=== PATIENT | female | born 1995 | race Caucasian/White ===

== ENCOUNTER 2016-06-15 17:48 | Inpatient (IN) | payer MEDICAID ==
[~2016-06-15] VITALS: Ht 152.4 cm; Wt 67.2 kg
--- NOTE | 2016-06-15 18:27 | HP ---
Date/Time of Note Date/Time of Note DATE: 06/15/16 TIME: 18:26 OB - History Hx of Present Free Text/Dictation @37+wks GA with 3 min Spontaneous decel : 1 Para: 0 Care: Good Care Ultrasounds: Normal mid trimester US Obstetrical Complications: None Medical Complications: None Past Family/Social History * Past Medical, Surgical, Family and Obstetric Histories reviewed from chart. OB Admission Exam Physical Exam Abdomen: WNL Extremities: Normal Cervical Dilatation: 1cm Effacement: 75% Station: -1 Heart Rate: 140's Accelerations: Accelerations Present Decelerations: Variable Decelerations Varibility: Moderate Contractions on Admission: >10 Minutes Apart OB Assessment/Plan Reason for admission: observation Plan: Expectant Management ELMER ANDRADE M.D. June 15, 2016 18:27
--- NOTE | 2016-06-15 18:35 | TRIAGE ---
OB Triage Datetime Report Generated by CPN: 06/15/2016 18:35 Datetime: 06/15/2016 18:33 Time of Arrival: 06/15/2016 17:30 EGA: 37.5 Arrived By: Ambulatory Arrived From: Home Chief Complaint: UC Movement: Present Contractions: Regular Time Contractions Began: 06/15/2016 13:00 Rupture of Membranes: Denies Vaginal Bleeding: Normal Show Vaginal Discharge: Denies Recent Sexual Intercouse: Denies Abdominal Trauma: Not Applicable Patient Complaints: Contractions Time Provider Notified: 06/15/2016 18:22 Provider Notified: Juanito Initial Plan: NST Datetime: 06/15/2016 18:15 Vaginal Exam Dilatation (cms): 1.0 Effacement (%): 50 Station: -3 Exam By: Breonna BRENNAN Membrane Status: Intact Datetime: 06/15/2016 17:50 Assessment Type: Triage Maternal Assessment Level of Consciousness: Fully Conscious DTR's/Clonus: DTRs 2+; No Clonus Headache: Denies Blurred Vision: No Respiratory Effort: Unlabored; Regular Rhythm; Equal Expansion Breath Sounds, Left: Clear and Equal Breath Sounds, Right: Clear and Equal Nausea/Vomiting: Denies RUQ Epigastric Pain: Denies Lower Extremities Edema: None Degree: None Upper Extremities Edema: None Degree: None Facial Edema: None Fall Risk Assessment History of Falling: (0) No Secondary Diagnosis: (0) No Ambulatory Aid: (0) Bedrest/Nurse Assist IV Therapy: (0) No Gait: (0) Normal/Bedrest/Immobile Mental Status: (0) Oriented to Own Ability Fall Score: 0 Fall Risk Score Definition: No Risk: No action required Datetime: 06/15/2016 17:45 Temperature Route: Oral Datetime: 06/15/2016 17:40 Stage of : Labor
[2016-06-15 18:36] VITALS: BP 116/78; PULSE 75; RESP 18; Ht 152.4 cm; Wt 67.2 kg
[2016-06-15] MEDS: LACTATED RINGER'S 1,000 ML IV SCH (20:14)
[2016-06-15 20:21] LABS: ADD SCAN DIFF NO
[2016-06-15 20:22] LABS: BASOPHILS % 0.2 % (0.0-2.0); EOSINOPHILS % 0.2 % (0.0-7.0); HEMATOCRIT 33.5 % (37.0-47.0); HEMOGLOBIN 11.1 g/dl (12.0-16.0); LYMPHOCYTES % 21.8 % (15.0-51.0); MEAN CORPUSCULAR HEMOGLOBIN 29.2 pg (29.0-33.0); MEAN CORPUSCULAR HGB CONC 33.1 g/dl (32.0-37.0); MEAN CORPUSCULAR VOLUME 88.2 fl (82.0-101.0); MONOCYTE # 1.1 10^3/ul (0.3-0.9); MONOCYTES % 12.1 % (0.0-11.0); NEUTROPHIL # 5.9 10^3/ul (1.6-7.5); PLATELET COUNT 236 10^3/UL (140-415); RED CELL DISTRIBUTION WIDTH 12.9 % (11.5-14.5); WHITE BLOOD COUNT 9.1 10^3/ul (4.8-10.8)
[2016-06-15] MEDS ORDERED: OXYTOCIN 30 UNITS/LR 500 ML IV SCH (20:30)
[2016-06-15] MEDS ORDERED: LIDOCAINE 1% (MPF) 30 ML INJ INJ PRN (20:30)
[2016-06-15] MEDS ORDERED: CARBOPROST 250 MCG INJ IM PRN (20:30)
[2016-06-15] MEDS ORDERED: OXYTOCIN 30 UNITS/LR 500 ML IV PRN (20:30)
[2016-06-15] MEDS ORDERED: BUTORPHANOL 2 MG INJ IV PRN (20:30)
[2016-06-15] MEDS ORDERED: MISOPROSTOL 200 MCG TAB PR PRN (20:30)
[2016-06-15] MEDS ORDERED: METHYLERGONOVINE 0.2 MG INJ IM PRN (20:30)
[2016-06-15 20:51] LABS: INR 0.97; PROTIME 12.9 Sec (12.2-14.2)
[2016-06-15 20:52] LABS: PARTIAL THROMBOPLASTIN TIME 28.1 Sec (25.0-35.0)
[2016-06-16] MEDS ORDERED: LACTATED RINGER'S 1,000 ML IV PRN
[2016-06-16] MEDS: LACTATED RINGER'S 1,000 ML IV SCH ×4 (01:42→21:35)
--- NOTE | 2016-06-16 12:36 | RADRPT ---
PROCEDURE: US biophysical profile. CLINICAL INDICATION: cardiac deceleration. TECHNIQUE: Multiple sonographic images of the uterus were obtained. The images were revi ewed on a PACS workstation. COMPARISON: No prior studies are available for comparison. FINDINGS: There is a single live intrauterine gestation. heart rate is 136 beats per minute. The position is cephalic. The placenta is posterior grade 1 with no abruption or previa. The MAURO is 14.9 cm. (Normal = 5-20 cm.) Breathing Movement: 2 Gross Body Movement: 2 Tone: 2 Qualitative Amniotic Fluid Volume: 2 TOTAL: 8 IMPRESSION: 1. The biophysical score is 8/8. RPTAT: QQ .Sandeep Duggan MD, MD Date Time Electronically viewed and signed by .Sandeep Duggan MD, on 06/16/2016 12:35 .R/
--- NOTE | 2016-06-16 12:59 | QN ---
Documentation Comment This is a 21 years old 1 para EDC June 30 admitted to the hospital after noticing 3 minutes spontaneous deceleration at NST clinic patient was sent to the hospital for extended observation she had no more deceleration while in the hospital biophysical profile was 8/8 while contemplating to discharge patient to the care of her clinic there was another 3 minutes variable deceleration for this reason decided to keep the patient in the hospital and she was transferred to antepartum unit for continuous monitoring CHICHI MACIEL MD June 16, 2016 12:59
[2016-06-17] MEDS: LACTATED RINGER'S 1,000 ML IV SCH ×2 (05:33→13:19)
--- NOTE | 2016-06-17 15:06 | DS ---
Date/Time of Note Date/Time of Note DATE: 06/17/16 TIME: 14:57 Discharge Summary Admission/Discharge Info Admit Date/Time June 15, 2016 at 18:30 Discharge Date/Time June 17 at 1500 Final Diagnosis at 37 weeks plus gestation 3 minutes variable deceleration patient kept under close observation no more deceleration during the last 12 hours perinatology telephone consultation recommended she may be discharged home to return to the hospital on June to repeat biophysical profile, she was given kick count form, with antepartum instructions. Patient Condition: Good Consults Perinatology consultation recommended to discharge patient, to return back to the hospital a.m. for biophysical profile Procedures Extended NST, biophysical profile Hx of Present Illness 37 weeks plus gestation occasional variable deceleration Hospital Course Satisfactory uneventful Home Meds No Active Prescriptions or Reported Meds Follow-up Plan Return to hospital on June 8 AM for biophysical profile CHICHI MACIEL MD June 17, 2016 15:06
[2016-06-18] MEDS ORDERED: PRENAT PO (10:22)
--- NOTE | 2016-06-19 22:45 | QN ---
Documentation Comment term variable decels admitted CHICHI MACIEL MD June 19, 2016 22:44
== END 2016-06-17 14:00 | disposition home or self-care (01) | DRG 782 ==
LOC: OBT 17:48 → L-D 17:49 → OBT 18:30 → L-D 18:30
PROVIDERS: ADMIT Obstetrics & Gynecology; ATTEND Obstetrics & Gynecology
DX: O76 Abnormality in fetal heart rate and rhythm complicating labor and delivery (principal); Z3A.37 37 weeks gestation of pregnancy
CPT/HCPCS: 76818; 85025; 85610; 85730; 86592; 86762; 86900; 86901; 87340; G0463; J7120

== ENCOUNTER 2016-06-18 10:10 | Inpatient (IN) | payer MEDICAID ==
[~2016-06-18] VITALS: Ht 152.4 cm; Wt 68.5 kg
[2016-06-18 10:21] VITALS: BP 101/68; PULSE 77
[2016-06-18] MEDS ORDERED: PRENAT PO (10:22)
--- NOTE | 2016-06-18 11:31 | RADRPT ---
PROCEDURE: OB ultrasound for biophysical profile CLINICAL INDICATION: Biophysical profile. . Decelerations TECHNIQUE: Multiple sonographic images of the pelvis were obtained. Transabdominal views are obta ined. COMPARISON: 06/16/2016 FINDINGS: Single intrauterine gestation. Presentation: Cephalic. Placenta: Posterior No evidence of placental abruption. No evidence of placenta previa. breathing movement = 2/2 tone = 2/2 motion = 2/2 MAURO = 2/2 MAURO = 9.3 cm heart rate: 148 beats per minute IMPRESSION: Single intrauterine gestation. Biophysical profile 09/18 RPTAT: AADD .William Pires MD, MD Date Time Electronically viewed and signed by .William Pires MD, on 06/18/2016 11:30 .B/
[2016-06-18] MEDS ORDERED: LIDOCAINE 1% (MPF) 30 ML INJ INJ PRN (13:30)
[2016-06-18] MEDS ORDERED: CARBOPROST 250 MCG INJ IM PRN (13:30)
[2016-06-18] MEDS ORDERED: LACTATED RINGER'S 1,000 ML IV PRN (13:30)
[2016-06-18] MEDS ORDERED: BUTORPHANOL 2 MG INJ IV PRN ×2 (13:30)
[2016-06-18] MEDS ORDERED: OXYTOCIN 30 UNITS/LR 500 ML IV PRN (13:30)
[2016-06-18] MEDS ORDERED: METHYLERGONOVINE 0.2 MG INJ IM PRN (13:30)
[2016-06-18] MEDS ORDERED: MISOPROSTOL 200 MCG TAB PR PRN (13:30)
[2016-06-18] MEDS ORDERED: OXYTOCIN 30 UNITS/LR 500 ML IV SCH ×3 (13:30)
[2016-06-18] MEDS: LACTATED RINGER'S 1,000 ML IV SCH ×2 (13:56→17:50)
[2016-06-18 14:00] LABS: ADD SCAN DIFF NO
[2016-06-18 14:04] LABS: BASOPHILS % 0.1 % (0.0-2.0); EOSINOPHILS % 0.4 % (0.0-7.0); HEMATOCRIT 32.1 % (37.0-47.0); HEMOGLOBIN 10.7 g/dl (12.0-16.0); LYMPHOCYTES # 1.7 10^3/ul (0.8-2.9); LYMPHOCYTES % 23.3 % (15.0-51.0); MEAN CORPUSCULAR HEMOGLOBIN 29.2 pg (29.0-33.0); MEAN CORPUSCULAR HGB CONC 33.3 g/dl (32.0-37.0); MEAN CORPUSCULAR VOLUME 87.7 fl (82.0-101.0); MEAN PLATELET VOLUME 10.9 fl (7.4-10.4); MONOCYTE # 0.8 10^3/ul (0.3-0.9); MONOCYTES % 11.5 % (0.0-11.0); NEUTROPHIL # 4.7 10^3/ul (1.6-7.5); NEUTROPHILS % 64.4 % (39.0-77.0); PLATELET COUNT 230 10^3/UL (140-415); RED BLOOD COUNT 3.66 10^6/ul (4.20-5.40); RED CELL DISTRIBUTION WIDTH 13.1 % (11.5-14.5); WHITE BLOOD COUNT 7.2 10^3/ul (4.8-10.8)
[2016-06-18 14:25] LABS: PARTIAL THROMBOPLASTIN TIME 29.9 Sec (25.0-35.0); PROTIME 13.2 Sec (12.2-14.2)
--- NOTE | 2016-06-18 18:37 | CONS ---
DATE OF ADMISSION: 06/18/2016 DATE OF CONSULTATION: 06/18/2016 HISTORY OF PRESENT ILLNESS: I received a call from Dr. Solomon to evaluate the strip of this patient . She is currently at 38 weeks and 3 days. She had a late deceleration otherwise is a normal strip , however, given the gestational age and late decelerations, delivery is recommended. Dictated By: MÓNICA COURTNEY/CHRIS Conf#: [id number] DID#: [id number]
[2016-06-19] MEDS: LACTATED RINGER'S 1,000 ML IV SCH ×2 (02:18→08:34)
[2016-06-19] MEDS ORDERED: CEFAZOLIN 2 GM/50 ML (PMX) 50 ML IVPB SCH (08:30)
[2016-06-19] MEDS ORDERED: LACTATED RINGER'S 1,000 ML IV ONE (09:03)
[2016-06-19] MEDS ORDERED: FAMOTIDINE 20 MG INJ IV ONE (09:30)
[2016-06-19] MEDS ORDERED: CITRIC ACID/NA CITRATE 30 ML CUP PO ONE (09:30)
[2016-06-19] MEDS ORDERED: METOCLOPRAMIDE 10 MG INJ IV ONE (09:30)
[2016-06-19] MEDS ORDERED: morphine SULFATE/PF (10 MG/10 ML) INJ ONE (09:45)
[2016-06-19] MEDS ORDERED: FENTAnyl 50 MCG/ML VIAL ONE (09:45)
[2016-06-19] MEDS ORDERED: OXYTOCIN 30 UNITS/LR 500 ML IV ONE ×2 (09:45→10:29)
[2016-06-19] MEDS ORDERED: PHENYLephrine (100 MCG/ML) 5ML SYG ONE (10:01)
--- NOTE | 2016-06-19 10:04 | HP ---
Date/Time of Note Date/Time of Note DATE: 06/19/16 TIME: 09:52 OB - History Hx of Present Free Text/Dictation 21 years old female 1 para 0 admitted to [facility] referred from perinatology clinic for variable deceleration some to 3 minutes, down to 60s patient kept under close observation in the labor and delivery room had several more of these decelerations with contractions close together at 1 to 2 minutes did not respond to terbutaline, perinatology consult obtained recommended delivery patient is being prepared for a primary due to nonreassuring heart tracing and not anticipating a timely delivery with induction of labor due to intolerance patient has been counseled regarding her condition and indications for section including complication of this procedure including bowel bladder injury infection wound hematoma wound infection she would like to proceed with the procedure Estimated Due Date: July 01, 2016 : 1 Para: 0 Care: Good Care Ultrasounds: Normal mid trimester US Obstetrical Complications: None Medical Complications: None Past Family/Social History * Past Medical, Surgical, Family and Obstetric Histories reviewed from chart. Rubella: immune RPR/VDRL: Negative GBS Status: Negative HBsAG: Negative OB Admission Exam Vital Signs Vital Signs Vital Signs Date Time Temp Pulse Resp B/P Pulse Ox O2 Delivery O2 Flow Rate FiO2 06/18/16 10:21 98.3 77 101/68 Physical Exam HEENT: WNL Heart: Rhythm Normal Lungs: Clear, Equal Abdomen: WNL Extremities: Normal Reflexes: Normal Cervical Dilatation: Fingertip Effacement: 25% Station: -2 Membranes: Intact Heart Rate: 130's Accelerations: Accelerations Present Decelerations: Variable Decelerations Varibility: Moderate Intensity: Moderate Last 72 hours Lab Results CBC & BMP 06/18/16 13:45 OB Assessment/Plan Reason for admission: active labor Plan: Other (Primary due to nonreassuring heart tracing category 3) CHICHI MACIEL MD June 19, 2016 10:03
[2016-06-19] MEDS ORDERED: ONDANSETRON 4 MG INJ ONE (10:06)
--- NOTE | 2016-06-19 11:39 | OPR ---
DATE OF OPERATION: 06/19/2016 PREOPERATIVE DIAGNOSIS: Intrauterine at 38 weeks and 2 days, nonreassuring heart tr acing, category 3, deceleration up to 3 minutes, recommended by perinatologist delivery by section. POSTOPERATIVE DIAGNOSIS: Intrauterine at 38 weeks and 2 days, nonreassuring heart t racing category 3 deceleration up to 3 minutes, recommended by perinatologist delivery by s ection. OPERATION PERFORMED: Primary transverse low cervical section. SURGEON: Chichi Solomon MD [employer]: Ronald Schaeffer MD ANESTHESIA: Spinal. ANESTHESIOLOGIST: Dr. Duncan. FINDINGS: Live baby girl with the 8 and 9. DETAILS OF THE PROCEDURE: Under satisfactory spinal anesthesia, the patient was prepped and draped and placed in supine position, tilted to the left. Pfannenstiel incision was made, carried through the subcutaneous tissue. Bleeders brought under control with electrocautery. Fascia incised to the length of the incision. Rectus muscle divided in midline. Peritoneum exposed, entered through a t ransverse incision. Exploration of abdomen: Gravid uterus at term, normal appearing tubes and ovar ies. Bladder flap was developed. Transverse incision was made in the lower segment of the uterus. Amniotic sac ruptured. Clear amniotic fluid noted. Live baby girl was delivered from unengaged vertex. Nasal oropharyngeal suction was performed. Bab y handed to the team for immediate attention. The patient received 20 units of Pitocin. P lacenta delivered manually intact. Uterine cavity cleaned with wet sponge and drainage established. Uterus closed in 2 layers using Monocryl #1 in continuous fashion. Peritoneal cavity irrigated wi th warm saline. Sponge, needle and instrument reported to be correct. Abdominal peritoneum closed with 2-0 chromic catgut continuously. Rectus muscle approximated with 3 interrupted 2-0 chromic cat gut. Fascia closed with #1 PDS in a continuous fashion. Subcutaneous tissue approximated with 2-0 chromic catgut. Skin closed with gigi. Estimated blood loss 600 mL. Urine bag contained 200 mL of clear urine. Patient tolerated procedure well, transferred to recovery room in a good condition . Dictated By: CHICHI DANGELO/NTS Conf#: [id number] DID#: [id number]
[2016-06-19] MEDS ORDERED: HYDROmorphONE (0.2 MG/ML) 10ML SYG IV PRN (13:00)
[2016-06-19] MEDS ORDERED: NALOXONE (0.4 MG/ML) INJ IV PRN (13:00)
[2016-06-19] MEDS ORDERED: HYDROmorphONE 1 MG/ML SYG IV PRN ×2 (13:00)
[2016-06-19] MEDS ORDERED: FENTAnyl 50 MCG/ML VIAL IV PRN (13:00)
[2016-06-19] MEDS ORDERED: ONDANSETRON 4 MG INJ IV PRN ×2 (13:00)
[2016-06-19] MEDS ORDERED: MEPERIDINE 25 MG INJ IV PRN (13:00)
[2016-06-19] MEDS ORDERED: KETOROLAC 30 MG INJ IV PRN ×2 (13:00)
[2016-06-19] MEDS ORDERED: DIPHENHYDRAMINE 50 MG INJ IV PRN ×2 (13:00)
[2016-06-19] MEDS ORDERED: PROCHLORPERAZINE 10 MG INJ IV PRN ×2 (13:00)
[2016-06-19] MEDS ORDERED: ZOLPIDEM 5 MG TAB PO PRN (13:00)
[2016-06-19 14:25] VITALS: BP 124/76; PULSE 60; RESP 17
[2016-06-19 14:40] VITALS: BP 127/78; PULSE 56; RESP 17
[2016-06-19] MEDS ORDERED: OXYCODONE/ACETAMINOPHEN (5/325) TAB PO PRN ×2 (15:00)
[2016-06-19] MEDS ORDERED: MISOPROSTOL 200 MCG TAB PR PRN (15:00)
[2016-06-19] MEDS ORDERED: CEFAZOLIN 1 GM/50 ML (PMX) 50 ML IVPB SCH (15:00)
[2016-06-19] MEDS ORDERED: LANOLIN 7 GM TUBE TOP PRN (15:00)
[2016-06-19] MEDS ORDERED: METHYLERGONOVINE 0.2 MG INJ IM PRN (15:00)
[2016-06-19] MEDS ORDERED: CARBOPROST 250 MCG INJ IM PRN (15:00)
[2016-06-19] MEDS ORDERED: ACETAMINOPHEN/CODEINE #3 TAB PO PRN ×2 (15:00)
[2016-06-19] MEDS ORDERED: OXYTOCIN 30 UNITS/LR 500 ML IV PRN (15:00)
[2016-06-19 15:10] VITALS: BP 110/70; PULSE 62; RESP 17
[2016-06-19 15:40] VITALS: BP 114/72; PULSE 71; RESP 17
[2016-06-19] MEDS: OXYTOCIN 30 UNITS/LR 500 ML IV SCH ×2 (15:57→21:11)
[2016-06-19] MEDS: IBUPROFEN 600 MG TAB PO SCH (18:00)
[2016-06-19 20:00] VITALS: BP 121/69; PULSE 69; RESP 18
[2016-06-19] MEDS: SENNA/DOCUSATE NA (8.6MG/50MG) TAB PO SCH (21:06)
[2016-06-20] MEDS: OXYTOCIN 30 UNITS/LR 500 ML IV SCH ×3 (01:19→06:41)
[2016-06-20 01:25] VITALS: BP 111/65; PULSE 75; RESP 18
[2016-06-20 04:00] VITALS: BP 111/74; PULSE 72; RESP 18
[2016-06-20] MEDS: IBUPROFEN 600 MG TAB PO SCH ×5 (06:00→23:35)
[2016-06-20] MEDS ORDERED: LACTATED RINGER'S 1,000 ML IV SCH (07:30)
[2016-06-20 08:02] LABS: ADD SCAN DIFF NO
[2016-06-20 08:08] LABS: BASOPHILS % 0.1 % (0.0-2.0); EOSINOPHILS # 0.1 10^3/ul (0.0-0.5); EOSINOPHILS % 0.6 % (0.0-7.0); HEMATOCRIT 28.4 % (37.0-47.0); HEMOGLOBIN 9.4 g/dl (12.0-16.0); LYMPHOCYTES # 1.3 10^3/ul (0.8-2.9); LYMPHOCYTES % 16.9 % (15.0-51.0); MEAN CORPUSCULAR HGB CONC 33.1 g/dl (32.0-37.0); MEAN CORPUSCULAR VOLUME 87.7 fl (82.0-101.0); MEAN PLATELET VOLUME 10.9 fl (7.4-10.4); MONOCYTE # 0.9 10^3/ul (0.3-0.9); MONOCYTES % 11.4 % (0.0-11.0); NEUTROPHIL # 5.6 10^3/ul (1.6-7.5); NEUTROPHILS % 70.4 % (39.0-77.0); PLATELET COUNT 155 10^3/UL (140-415); RED BLOOD COUNT 3.24 10^6/ul (4.20-5.40); WHITE BLOOD COUNT 7.9 10^3/ul (4.8-10.8)
[2016-06-20 08:43] VITALS: BP 122/83; PULSE 70; RESP 14
--- NOTE | 2016-06-20 09:17 | PN ---
Date/Time of Note Date/Time of Note DATE: 06/20/16 TIME: 09:15 OB Subjective Subjective Subjective Post day 1 Afebrile vitals stable abdomen soft mildly distended bowel sounds present lochia moderate extremity normal able to pass flatus ambulation encouraged OB Objective Objective Objective Post day 1 abdomen soft bowel sounds present lochia moderate incision extremities negative OB Assessment/Plan Plan: Expectant Management (Expecting management) CHICHI MACIEL MD June 20, 2016 09:17
[2016-06-20] MEDS: SENNA/DOCUSATE NA (8.6MG/50MG) TAB PO SCH ×2 (09:34→21:00)
[2016-06-20 11:57] VITALS: BP 127/82; PULSE 71; RESP 14
[2016-06-20 16:34] VITALS: BP 101/64; PULSE 93; RESP 16
[2016-06-20 20:00] VITALS: BP 106/65; PULSE 78; RESP 20
[2016-06-21 04:00] VITALS: BP 125/70; PULSE 59; RESP 18
[2016-06-21] MEDS: IBUPROFEN 600 MG TAB PO SCH ×4 (05:35→23:25)
[2016-06-21 08:00] VITALS: BP 105/76; PULSE 58; RESP 16
[2016-06-21] MEDS: SENNA/DOCUSATE NA (8.6MG/50MG) TAB PO SCH ×2 (10:11→20:58)
[2016-06-21 15:30] VITALS: BP 115/68; PULSE 72; RESP 18
[2016-06-21] MEDS ORDERED: DIPHTH/TET/ACEL PERTUSS (ADULT) 0.5 ML VIAL IM* ONE (16:00)
[2016-06-21 20:05] VITALS: BP 129/78; PULSE 66; RESP 19
--- NOTE | 2016-06-22 00:40 | QN ---
Documentation Comment post c section 2 . afebrile abdomen soft bs positive had bm ext normal CHICHI MACIEL MD June 22, 2016 00:40
[2016-06-22 04:15] VITALS: BP 124/73; PULSE 72; RESP 17
[2016-06-22] MEDS: IBUPROFEN 600 MG TAB PO SCH (05:27)
[2016-06-22 08:00] VITALS: BP 117/93; PULSE 65; RESP 18
[2016-06-22] MEDS ORDERED: DIPHTH/TET/ACEL PERTUSS (ADULT) 0.5 ML VIAL IM* ONE (09:00)
[2016-06-22] MEDS: SENNA/DOCUSATE NA (8.6MG/50MG) TAB PO SCH (10:14)
--- NOTE | 2016-06-22 13:49 | PN ---
Date/Time of Note Date/Time of Note DATE: 06/22/16 TIME: 13:46 OB Subjective Subjective Subjective Patient without complaints. Ready to go home. OB Objective Objective Objective Gen: NAD Abd: I-C/D/I with gigi OB Assessment/Plan Reason for admission: section Other plan: POD3 s/p primary -discharge home -pelvic rest, no heavy lifting -rx for pain meds -f/u in clinic for staple removal and visit IAM MONTENEGRO June 22, 2016 13:49
--- NOTE | 2016-06-22 13:50 | DS ---
Date/Time of Note Date/Time of Note DATE: 06/22/16 TIME: 13:49 Obstetrical Discharge Record Final Diagnosis Final Diagnosis: Term delivered Section Section: Primary Primary Indication NRFHT Condition on Discharge Physical Assessment Last Vitals: See PN Patient Condition: Stable IAM MONTENEGRO June 22, 2016 13:50
== END 2016-06-22 15:33 | disposition home or self-care (01) | DRG 766 ==
LOC: L-D 10:10 → OBT 10:10 → L-D 13:41 → PP1 06-19 14:43
PROVIDERS: ADMIT Obstetrics & Gynecology; ATTEND Obstetrics & Gynecology
PROC: 10D00Z1 Extraction of Products of Conception, Low, Open Approach (ICD-10-PCS; principal; 2016-06-19 09:00)
DX: O76 Abnormality in fetal heart rate and rhythm complicating labor and delivery (principal); Z37.0 Single live birth; Z3A.38 38 weeks gestation of pregnancy
CPT/HCPCS: 76818; 85025; 85610; 85730; 86592; 86850; 86870; 86885; 86900; 86901; 87340; 90715; 99464; G0463; J0690; J1885; J2274; J2370; J2405; J2590; J2765; J2790; J3010; J7120

== ENCOUNTER 2018-09-05 13:00 | Emergency (ER) | payer MEDICAID ==
[~2018-09-05] VITALS: Ht 154.9 cm; Wt 61.4 kg
[~2018-09-05 13:00] MED LIST: CYCL10TA7 PO; NAPR-985 PO; PRENAT PO
[2018-09-05 13:06] VITALS: BP 116/55; PULSE 69; RESP 18; Ht 154.9 cm; Wt 61.4 kg
[2018-09-05] MEDS ORDERED: KETOROLAC 30 MG INJ IM STA (13:22)
[2018-09-05] MEDS ORDERED: CYCLOBENZAPRINE 10 MG TAB PO ONE (13:30)
--- NOTE | 2018-09-05 19:28 | ERD ---
ER Documentation Chief Complaint Chief Complaint c/o lower back pain, radiaing to left leg. Hx: Sciatica HPI 23-year-old female presents with complaint of lower back pain radiating to left leg x2 days. Patient denies recent trauma or injury. Notes previous history of sciatica, which usually self resolves. She rates her current pain as a 6 out of 10 for which she has not taken any medication prior to arrival. She denies history of DM, CVA, IVDA. Denies saddle anesthesia, bowel/bladder incontinence, loss of motor function. No recent fevers. ROS All systems reviewed and are negative except as per history of present illness. Medications Home Meds Active Scripts Cyclobenzaprine Hcl* (Cyclobenzaprine Hcl*) 10 Mg Tablet, 10 MG PO TID, #15 TAB Prov:JAMES CARTER PA-C 09/05/18 Naproxen* (Naprosyn*) 500 Mg Tablet, 500 MG PO BID PRN for PAIN AND/OR INFLAMMATION, #30 TAB Prov:JAMES CARTER PA-C 09/05/18 Reported Medications Multivit/Min/Fol Ac/Iron/Pren* ( S*) 1 Tab Tab, 1 TAB PO DAILY, TAB 06/18/16 Allergies Allergies: Coded Allergies: No Known Allergy (Unverified , 06/15/16) PMhx/Soc Medical and Surgical Hx: pt denies Medical Hx, pt denies Surgical Hx FmHx Family History: No diabetes, No coronary disease, No other Physical Exam Vitals Vital Signs Date Temp Pulse Resp B/P (MAP) Pulse Ox O2 O2 Flow FiO2 Time Delivery Rate 09/05/18 98.8 69 18 116/55 98 13:06 (75) Physical Exam Constitutional: Well developed. Well nourished. No acute distress Head/Eyes: Atraumatic. Normocephalic. PERRL. EOMI ENT: Moist mucous membranes. Voice normal. Neck: Supple. No lymphadenopathy Cardiovascular: Regular rate and rhythm. No murmurs, rubs, or gallops. Distal pulses intact Respiratory: No respiratory distress. Normal breath sounds. No wheezes, rales, or rhonchi. Abdominal: Soft. Non-tender. No guarding, rebound, or rigidity. Non-distended. Back: Inspection normal, no midline or CVA tenderness, bilateral lower lumbar paraspinous muscle spasm and tenderness, Full ROM, ROM elicits pain, positive left straight leg raise, normal dorsiflexion BLE, NVI distally. Extremities: No edema. Inspection normal, Normal range of motion to all major joints Skin: Dry. No rashes. Warm Neurological: Alert and oriented X 3. Normal speech. Ambulates appropriately. Psychiatric: Normal mood. Normal affect Results 24 hrs Laboratory Tests Test 09/05/18 13:50 POC Beta HCG, Qualitative NEGATIVE Current Medications Medications Dose Sig/Roc Start Time Status Last (Trade) Ordered Route PRN Stop Time Admin Dose Reason Admin Ketorolac 30 mg ONCE STAT 09/05/18 DC 09/05/18 Tromethamine IM 13:22 13:56 (Toradol) 09/05/18 13:30 10 mg ONCE ONCE 09/05/18 DC 09/05/18 Cyclobenzapri PO 13:30 13:56 ne HCl 09/05/18 13:31 (Flexeril) Procedures/MDM MDM: 23-year-old female presents with complaint of low back pain x2 days. Physical exam findings consistent with sciatica. No midline tenderness patient able to ambulate appropriately. X-ray imaging deferred shunt treated with Toradol and Flexeril while in ED. patient endorsed improvement in symptoms. Given patient's musculoskeletal symptoms have stabilized while they have been evaluated in the department at this time they are appropriate for outpatient management. No evidence of cauda equina, cord compression, infiltrative, or infectious etiology. Patient will be discharged home with prescription for NSAIDs, muscle relaxants, and counseled regarding possible need for follow-up with PCP and/or physical therapy. Also counseled regarding alarm symptoms and advised to present to the ED [facility] if symptoms develop. Patient expressed verbal understanding and agreement to treatment plan, all questions addressed and answered. Departure Diagnosis: Primary Impression: Sciatica Laterality: left Qualified Codes: M54.32 - Sciatica, left side Condition: Stable Patient Instructions: Back Pain W/ Sciatica [facility] Usted se manriquez hecho un examen mdico de control que le indica que no est en maddi condicin que requiera tratamiento urgente en el Departamento de Emergencia. Un estudio ms profundo y el tratamiento de pacheco condicin pueden esperar sin ningn riesgo hasta que usted sea atendida/o en el consultorio de pacheco mdico o maddi clnica. Es responsabilidad suya arreglar maddi juliana para el seguimiento del nito. MANEJO DE CONDICIONES NO URGENTES EN EL FUTURO 1) Si usted tiene un mdico de atencin primaria: Usted debera llamar a pacheco mdico de atencin primaria antes de venir al departamento de emergencia. Despus de las horas de consultorio, pacheco doctor o pacheco asociado/a est disponible por telfono. El mdico o enfermero de chinmay en el servicio telefnico puede asesorarle por vibha medio para atender el problema, o nito contrario se puede programar maddi juliana. 2) Si usted no tiene un mdico de atencin primaria: Llame al mdico o clnica de referencia que aparece abajo teresa las horas de consultorio para hacer maddi juliana para que le vean. CLINICAS: [facility] [phone] [facility] [phone] [facility] [phone] [facility] [phone] [place] [id number] [phone] [facility]. [phone] JAMES ROJAS PA-C Sep 05, 2018 19:28
== END 2018-09-05 14:41 | disposition home or self-care (01) ==
LOC: FTE 13:00
DX: M54.42 Lumbago with sciatica, left side (principal)
CPT/HCPCS: 81025; 96372; J1885; Z7502; Z7610